=== PATIENT | female | born 2000 | race Caucasian/White ===

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

== ENCOUNTER 2021-01-03 20:35 | Emergency (ER) | payer BC ==
--- OUTSIDE RECORDS SUMMARY | 2021-01-03 20:38 | XMS REPORT | Continuity of Care Document ---
:2000 Author Organization [facility] t Address [address] [place] [address] Care Team Providers Name Role Phone Unavailable Unavailable Unavailable Problems Condition Condition Condition Status Onset Resolution Last Treating Co mments Source Name Details Category Date Date Treatment Clinician Date Contracept Contracept Problem Active 2018-07 M atagor ion using ion Using 0-29 da injectable Injectable 00:00: Me dical contracept Contracept 00 Gr oup kulwinder kulwinder medication Medication Contracept Contracept Problem Active 2018-07 M atag[facility] ion care ion Care 0-29 da management Management 00:00: Me dical 00 Group Allergies, Adverse Reactions, Alerts This patient has no known allergies or adverse reactions. Social History Smoking Status Start Date Stop Date Source Never Smoker [facility] Medications Ordered Filled Start Stop Current Ordering Indication Dosage Frequency Signature Comments Components Source Medication Medication Date Date Medication? Clinician (SIG) Name Name medroxyprog medroxyprog 2018-07 No medroxypro [place] esterone esterone 0-29 gesterone da 150 mg/mL 150 mg/mL 16:00: 150 mg/mL Medical intramuscul intramuscul 00 intramuscu Group ar ar lar suspensionI suspensionI suspension nject 1 mL nject 1 mL Inject 1 every 3 every 3 mL every 3 months by months by months by intramuscul intramuscul intramuscu ar route. ar route. lar route. medroxyprog medroxyprog No 1mL medroxypro [place] esterone esterone gesterone da 150 mg/mL 150 mg/mL 150 mg/mL Medical intramuscul intramuscul intramuscu Group ar ar lar suspension suspension suspension Inject 1 mL Inject 1 mL Inject 1 every 3 every 3 mL every 3 months by months by months by intramuscul intramuscul intramuscu ar route. ar route. lar route. ProAir HFA ProAir HFA No ProAir HFA [place] 90 90 90 da mcg/actuati mcg/actuati mcg/actuat Medical on aerosol on aerosol ion Mayco up inhaler inhaler aerosol inhaler Vital Signs Vital Name Observation Time Observation Value Comments Source BP Diastolic 2019-05-05 00:00:00 73 mm[Hg] [facility] Height 2019-05-05 00:00:00 61 [in_i] [facility] BMI (Body Mass 2019-05-05 00:00:00 23.1 kg/m2 [facility] Index[facility] Group BP Systolic 2019-05-05 00:00:00 107 mm[Hg] [facility] Body Weight 2019-05-05 00:00:00 122 [lb_av] [facility] Procedures This patient has no known procedures. Plan of Care Planned Activity Planned Date Details Comments Source Diagnostic Test 2019-05-05 urinalysis, [facility] P[facility] 00:00:00 dipstick [code = Group urinalysis, dipstick] Diagnostic Test 2019-05-05 test, [facility] Pending 00:00:00 urine [code = Group test, urine] Diagnostic Test 2019-05-05 CT + NG DNA, PCR, [facility] 00:00:00 urine [code = CT + Group NG DNA, PCR, urine] Encounters Start End Encounter Admission Attending Care Care Encounter Source Date/Time Date/Time Type Type Clinicians Facility Department ID 2019-05-05 2019-05-05 Alysia Quiles [facility] [place] - [id number] [place] 00:00:00 00:00:00 [facility] WHNP: [facility] [address], [place] [address] , Ph. [phone] Results Test Description Test Time Test Comments Results Result Comments Source Urinalysis macro (dipstick) panel - Urine 2019-05-05 15:07:0 0 Test Item Value Reference Range Interpretation Comme nts Leukocytes (test code = Leukocytes) Small Nitrite (test code = Nitrite) negative Urobilinogen (test code = Urobilinogen) .2 Protein (test code = Protein) Negative pH (test code = pH) 7.0 Blood (test code = Blood) Negative Specific Irving (test code = Specific Irving) 1.015 Ketone (test code = Ketone) Negative Bilirubin (test code = Bilirubin) Negative Glucose (test code = Glucose) Negative Appearance (test code = Appearance) Clear Color (test code = Color) Yellow [facility] [id number] 15:05:57 Test Item Value Reference Range Interpretation Comments Test (test code = negative Test) [facility]
[2021-01-03 20:56] LABS: Urine Blood Negative (Negative); Urine Glucose Negative (Negative); Urine Protein Trace (Negative); Urine Specific Gravity >=1.030 (1.005-1.030); Urine pH 5.5 (5.0-7.0)
--- NOTE | 2021-01-03 21:41 | ER ---
Nurse's Notes [facility] Name: Juju Nguyen Age: 20 yrs Sex: Female : 2000 Arrival Date: 01/03/2021 Time: 20:39 Bed 24 Private MD: Diagnosis: Diarrhea, unspecified Presentation: 01/03 20:55 Chief complaint: Patient states: Pt reports that she went swimming on Saturday she woke ea up Saturday with fever nausea vomiting and diarrhea. Coronavirus screen: At this time, the client does not indicate any symptoms associated with coronavirus-19. Ebola Screen: No symptoms or risks identified at this time. Initial Sepsis Screen: Does the patient meet any 2 criteria? No. Patient's initial sepsis screen is negative. Does the patient have a suspected source of infection? No. Patient's initial sepsis screen is negative. Risk Assessment: Do you want to hurt yourself or someone else? Patient reports no desire to harm self or others. Onset of symptoms was January 03, 2021. 20:55 Method Of Arrival: Ambulatory ea 20:55 Acuity: LYDIA 3 ea Triage Assessment: 21:49 Headache History: Denies prior headaches. General: Appears in no apparent distress. ld1 comfortable. Pain: Also complains of. Pain: Denies pain. 21:50 Pain: Pain currently is 0 out of 10 on a pain scale. Pain began 1 day ago. 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 - Social history:: Smoking status: Patient denies any tobacco usage or history of. Screenin:00 Abuse screen: Denies threats or abuse. Nutritional screening: No deficits noted. ea Tuberculosis screening: No symptoms or risk factors identified. Fall Risk None identified. Assessment: 20:58 General: Appears in no apparent distress. comfortable, Behavior is calm, cooperative, ld1 appropriate for age. Pain: Denies pain. Neuro: Level of Consciousness is awake, alert, obeys commands, Oriented to person, place, time, situation. Cardiovascular: Capillary refill < 3 seconds Patient's skin is warm and dry. Respiratory: Airway is patent Respiratory effort is even, unlabored, Respiratory pattern is regular, symmetrical. GI: Abdomen is flat, non-distended, Reports diarrhea, nausea, vomiting. : No signs and/or symptoms were reported regarding the genitourinary system. EENT: No signs and/or symptoms were reported regarding the EENT system. Derm: No signs and/or symptoms reported regarding the dermatologic system. Musculoskeletal: No signs and/or symptoms reported regarding the musculoskeletal system. 21:37 Reassessment: Patient appears in no apparent distress at this time. Patient is alert, ld1 oriented x 3, equal unlabored respirations, skin warm/dry/pink. Vital Signs: 20:55 BP 119 / 70; Pulse 60; Resp 18; Temp 98; Pulse Ox 97% ; Weight 58.97 kg; Height 5 ft. 1 ea in. (154.94 cm); 20:59 BP 119 / 75; Pulse 76; Resp 18; Temp 98.3(O); Pulse Ox 100% on R/A; Weight 58.97 kg; ld1 Height 5 ft. 1 in. (154.94 cm); Pain 0/10; 21:37 BP 124 / 77; Pulse 72; Resp 18; Pulse Ox 100% on R/A; ld1 20:59 Body Mass Index 24.56 (58.97 kg, 154.94 cm) ld1 ED Course: 20:39 Patient arrived in ED. es 20:45 Rubén Arnold MD is Attending Physician. ma2 20:58 Leilani Sims RN is Primary Nurse. ld1 20:59 No provider procedures requiring assistance completed. ld1 21:00 Triage completed. ea 21:00 Arm band placed on right wrist. ea 21:00 Patient has correct armband on for positive identification. Bed in low position. Call ea light in reach. 21:50 Patient did not have IV access during this emergency room visit. ld1 Administered Medications: 21:31 Drug: Ondansetron 4 mg Route: PO; ld1 21:36 Follow up: Response: No adverse reaction ld1 Outcome: 21:41 Discharge ordered by . ma2 21:50 Discharged to home ambulatory. ld1 21:50 Condition: stable 21:50 Discharge instructions given to patient, Instructed on discharge instructions, follow up and referral plans. medication usage, Demonstrated understanding of instructions, follow-up care, medications. 21:50 Patient left the ED. ld1 Signatures: Nikki Phillips Elena, RN RN Rubén Gibbons MD MD ma2 Leilani Sims RN RN ld1
--- NOTE | 2021-01-03 21:42 | EDPHYS ---
Physician Documentation [facility] Name: Juju Nguyen Age: 20 yrs Sex: Female : 2000 Arrival Date: 01/03/2021 Time: 20:39 Bed 24 Private MD: ED Physician Rubén Arnold HPI: 01/03 21:38 This 20 yrs old Female presents to ER via Ambulatory with complaints of ma2 Headache, Abdominal Pain, Fever, Vomiting, Body ache. 21:38 Onset: The symptoms/episode began/occurred gradually, 2 day(s) ago. Associated signs ma2 and symptoms: Pertinent positives: vomiting and diarrhea , Pertinent negatives: fever, nausea, paresthesias, Photophobia weakness. 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 - Social history:: Smoking status: Patient denies any tobacco usage or history of. ROS: 21:39 Constitutional: Negative for fever, chills, and weight loss. ma2 21:39 All other systems are negative. Exam: 21:39 Constitutional: This is a well developed, well nourished patient who is awake, alert, ma2 and in no acute distress. Head/Face: Normocephalic, atraumatic. Eyes: Pupils equal round and reactive to light, extra-ocular motions intact. Lids and lashes normal. Conjunctiva and sclera are non-icteric and not injected. Cornea within normal limits. Periorbital areas with no swelling, redness, or edema. ENT: Nares patent. No nasal discharge, no septal abnormalities noted. Tympanic membranes are normal and external auditory canals are clear. Oropharynx with no redness, swelling, or masses, exudates, or evidence of obstruction, uvula midline. Mucous membranes moist. Neck: Trachea midline, no thyromegaly or masses palpated, and no cervical lymphadenopathy. Supple, full range of motion without nuchal rigidity, or vertebral point tenderness. No Meningismus. Chest/axilla: Normal chest wall appearance and motion. Nontender with no deformity. No lesions are appreciated. Cardiovascular: Regular rate and rhythm with a normal S1 and S2. No gallops, murmurs, or rubs. Normal PMI, no JVD. No pulse deficits. Respiratory: Lungs have equal breath sounds bilaterally, clear to auscultation and percussion. No rales, rhonchi or wheezes noted. No increased work of breathing, no retractions or nasal flaring. Abdomen/GI: Soft, non-tender, with normal bowel sounds. No distension or tympany. No guarding or rebound. No evidence of tenderness throughout. Skin: Warm, dry with normal turgor. Normal color with no rashes, no lesions, and no evidence of cellulitis. MS/ Extremity: Pulses equal, no cyanosis. Neurovascular intact. Full, normal range of motion. Neuro: Awake and alert, GCS 15, oriented to person, place, time, and situation. Cranial nerves II-XII grossly intact. Motor strength 5/5 in all extremities. Sensory grossly intact. Cerebellar exam normal. Normal gait. Vital Signs: 20:55 BP 119 / 70; Pulse 60; Resp 18; Temp 98; Pulse Ox 97% ; Weight 58.97 kg; Height 5 ft. 1 ea in. (154.94 cm); 20:59 BP 119 / 75; Pulse 76; Resp 18; Temp 98.3(O); Pulse Ox 100% on R/A; Weight 58.97 kg; ld1 Height 5 ft. 1 in. (154.94 cm); Pain 0/10; 21:37 BP 124 / 77; Pulse 72; Resp 18; Pulse Ox 100% on R/A; ld1 20:59 Body Mass Index 24.56 (58.97 kg, 154.94 cm) ld1 MDM: 20:45 Patient medically screened. ma2 21:39 Differential diagnosis: gastroenteritis vs gastritis vs viral ilness vs uri. Data ma2 reviewed: vital signs, nurses notes. Counseling: I had a detailed discussion with the patient and/or guardian regarding: the historical points, exam findings, and any diagnostic results supporting the discharge/admit diagnosis, the presence of at least one elevated blood pressure reading (>120/80) during this emergency department visit, lab results, the need for outpatient follow up, the need for further work-up and treatment in the hospital. Response to treatment: the patient's symptoms have markedly improved after treatment, the patient's symptoms have resolved after treatment. 01/03 20:56 Order name: Urine Dipstick-Ancillary EDMS 01/03 20:58 Order name: Urine --Ancillary (enter results) tt3 01/03 20:59 Order name: Urine --Ancillary EDMS Administered Medications: 21:31 Drug: Ondansetron 4 mg Route: PO; ld1 21:36 Follow up: Response: No adverse reaction ld1 Disposition Summary: 01/03/21 21:41 Discharge Ordered Location: Home ma2 Condition: Stable ma2 Diagnosis - Diarrhea, unspecified ma2 Followup: ma2 - With: Private Physician - When: Tomorrow - Reason: If symptoms return, Continuance of care Discharge Instructions: - Discharge Summary Sheet ma2 - Food Choices to Help Relieve Diarrhea, Adult ma2 - Diarrhea, Adult ma2 Forms: - Medication Reconciliation Form ma2 - Thank You Letter ma2 - Antibiotic Education ma2 - Prescription Opioid Use ma2 Prescriptions: - Zofran 4 mg Oral Tablet - take 1 tablet by ORAL route every 12 hours As needed; 20 tablet; Refills: 0, ma2 Product Selection Permitted - Pepcid 20 mg Oral Tablet - take 1 tablet by ORAL route once daily for 10 days; 10 tablet; Refills: 0, ma2 Product Selection Permitted Signatures: Dispatcher [employer] EDMS Rubén Arnold MD MD ma2 Leilani Sims RN RN ld1
[2021-01-03 21:50] LABS: Urine Specific Gravity/Preg >1.030 (1.005-1.030)
[2021-01-03] MEDS ORDERED: ONDANSETRON 4 MG (ODT) TAB ONE (21:56)
[2021-01-03 22:14] VITALS: TEMP 98.3; O2SAT 100
[2021-01-03 22:15] VITALS: BP 124/77
== END 2021-01-03 21:50 | disposition home or self-care (01) ==
LOC: ER 20:35
DX: R19.7 Diarrhea, unspecified (principal)
CPT/HCPCS: 81003; 81025; 99283

== ENCOUNTER 2022-11-18 21:24 | Emergency (ER) | payer BC ==
--- OUTSIDE RECORDS SUMMARY | 2022-11-18 21:27 | XMS REPORT | Continuity of Care Document ---
:[address] [facility] t Address [address] [place] [address] Care Team Providers Name Role Phone G_Pappas Attending Clinician Unavailable V_Landis Attending Clinician Unavailable G_Pappas Admitting Clinician Unavailable V_Landis Admitting Clinician Unavailable Payers Payer Name Policy Type Policy Number Effective Date Expiration Date [place] [id number] 2018 00:00:00 [place] Problems Condition Condition Condition Status Onset Resolution [...] Start Date Stop Date Source Never Smoker [facility] Medications Ordered Filled Start [...] Source BP Diastolic 2019-05-05 00:00:00 73 [facility] Height 2019-05-05 00:00:00 61 [in_i] [facility] BMI (Body Mass 2019-05-05 00:00:00 23.1 kg/m2 [facility]) Group BP Systolic 2019-05-05 00:00:00 107 mm[Hg] [facility] Body Weight 2019-05-05 00:00:00 122 [lb_av] [facility] Procedures This patient has no known procedures. Plan of Care Planned Activity Planned Date Details Comments Source Diagnostic Test 2019-05-05 urinalysis, [facility] 00:00:00 dipstick [code = Group urinalysis, dipstick] Diagnostic Test 2019-05-05 test, [facility] 00:00:00 urine [code = Group test, urine] Diagnostic Test 2019-05-05 CT + NG DNA, PCR, [facility] 00:00:00 urine [code = CT + Group NG DNA, PCR, urine] Encounters Start End Encounter Admission Attending Care Care Encounter Source Date/Time Date/Time Type Type Clinicians Facility Department ID 2020-05-31 2020-05-31 Outpatient G_Pappas [facility] [id number] [place] 04:27:00 04:27:00 [id number] 2020-05-25 2020-05-25 Outpatient V_Landis [facility] [id number] [place] 02:47:00 02:47:00 [id number] 2019-08-18 2019-08-18 [facility] [id number] [place] 11:29:00 11:29:00 [id number] 2019-07-30 2019-07-30 [facility] [id number] [place] 10:35:00 10:35:00 [id number] [facility] 2019-05-05 2019-05-05 Alysia Quiles [facility] [place] - [id number] [place] 00:00:00 00:00:00 [facility] Lazaro da WHNP: [facility] [address], [facility] [place] [address] , Ph. [phone] Results Test Description Test Time Test Comments [...] Blood (test code = Blood) Negative Specific [place] (test code = Specific [place]) 1.015 Ketone (test code = Ketone) Negative Bilirubin (test code = Bilirubin) Negative Glucose (test code = Glucose) Negative Appearance (test code = Appearance) Clear Color (test code = Color) Yellow [facility], [id number] 15:05:57 Test Item Value Reference Range Interpretation Comments Test (test code = negative Test) [facility]
--- NOTE | 2022-11-18 22:10 | ER ---
Nurse's Notes [facility] Name: Juju Nguyen Age: 22 yrs Sex: Female : 2000 Arrival Date: 11/18/2022 Time: 21:24 Bed IW1 Private MD: Diagnosis: Dental caries, unspecified Presentation: 11/18 21:44 Chief complaint: Patient states: left jaw pain seen at urgent care on amoxicillin x 2 kl days has taken iburpofen 600mg at 1600 tyelenol 1000mg at 7 pm without relief. Coronavirus screen: Vaccine status: Patient reports being unvaccinated. Ebola Screen: Patient negative for fever greater than or equal to 101.5 degrees Fahrenheit, and additional compatible Ebola Virus Disease symptoms. Initial Sepsis Screen: Does the patient meet any 2 criteria? No. Patient's initial sepsis screen is negative. Does the patient have a suspected source of infection? No. Patient's initial sepsis screen is negative. Risk Assessment: Do you want to hurt yourself or someone else? Patient reports no desire to harm self or others. 21:44 Method Of Arrival: Ambulatory kl 21:44 Acuity: LYDIA 4 kl Triage Assessment: 21:49 General: Appears uncomfortable, Behavior is calm, cooperative. Pain: Complains of pain kl in left jaw Pain currently is 8 out of 10 on a pain scale. EENT: Reports pain in left jaw. Historical: - Allergies: 21:48 No Known Allergies; kl - Home Meds: 21:48 amoxicillin 500 mg Oral capsule every 8 hours [Active]; kl - PMHx: 21:48 brochiolitis; kl - PSHx: 21:48 None; kl - Immunization history:: Adult Immunizations not up to date. - Social history:: Smoking status: Reported history of juuling and/or vaping. Screenin:23 [facility] ED Fall Risk Assessment (Adult) History of falling in the last 3 months, kl including since admission No falls in past 3 months (0 pts) Confusion or Disorientation No (0 pts) Intoxicated or Sedated No (0 pts) Impaired Gait No (0 pts) Mobility Assist Device Used No (0 pt) Altered Elimination No (0 pt) Score/Fall Risk Level 0 - 2 = Low Risk Oriented to surroundings, Maintained a safe environment. Abuse screen: Denies threats or abuse. Nutritional screening: No deficits noted. Tuberculosis screening: No symptoms or risk factors identified. Assessment: 22:23 Reassessment: Patient appears in no apparent distress at this time. General: Behavior kl is calm, cooperative. Vital Signs: 21:44 BP 111 / 64; Pulse 84; Resp 18; Temp 98(IR); Pulse Ox 99% on R/A; Weight 58.97 kg (R); kl Height 5 ft. 1 in. ; Pain 8/10; 21:44 Body Mass Index 24.56 (58.97 kg, 154.94 cm) kl 21:44 Pain Scale: Adult ED Course: 21:26 Patient arrived in ED. mr 21:27 [facility] Dewitt [facility]C [facility] snw 21:27 Lennxo Solomon MD is Attending Physician. snw 21:48 Triage completed. kl 22:24 Patient has correct armband on for positive identification. kl 22:24 No provider procedures requiring assistance completed. Patient did not have IV access kl during this emergency room visit. Administered Medications: 22:23 Drug: HYDROcodone-acetaminophen PO 5 mg-325 mg 1 tabs Route: PO; kl 22:24 Follow up: Response: No adverse reaction Medication: 22:23 VIS not applicable for this client. Outcome: 22:09 Discharge ordered by . snw 22:24 Discharged to home ambulatory. kl 22:24 Condition: stable 22:24 Discharge instructions given to patient, Instructed on discharge instructions, follow up and referral plans. medication usage, Demonstrated understanding of instructions, follow-up care, medications, Prescriptions given X 2. 22:24 Patient left the ED. Signatures: Diana Quiroz, RN RN Shelli Field FNP-C FNP-Calin Tabatha Chaney mr
--- NOTE | 2022-11-18 22:10 | EDPHYS ---
Physician Documentation [facility] Name: Juju Nguyen Age: 22 yrs Sex: Female : 2000 Arrival Date: 11/18/2022 Time: 21:24 Bed IW1 Private MD: ED Physician Lennox Solomon HPI: 11/18 22:13 This 22 yrs old Female presents to ER via Ambulatory with complaints of Toothache. snw 22:13 The patient presents with pain. The problem is located in the upper left first molar snw (#14) and upper left second bicuspid (#13). Onset: The symptoms/episode began/occurred suddenly. Duration: The symptoms are continuous, and are steadily getting worse. Associated signs and symptoms: Pertinent positives: inability to eat, pain. Severity of symptoms: At their worst the symptoms were incapacitating, just prior to arrival. The patient has not experienced similar symptoms in the past. pt went to and was given abx Saturday. Taking motrin and tylenol at home. Mom states patient has been crying all evening with pain.. Historical: - Allergies: 21:48 No Known Allergies; kl - Home Meds: 21:48 amoxicillin 500 mg Oral capsule every 8 hours [Active]; kl - PMHx: 21:48 brochiolitis; kl - PSHx: 21:48 None; kl - Immunization history:: Adult Immunizations not up to date. - Social history:: Smoking status: Reported history of juuling and/or vaping. ROS: 22:13 Constitutional: Negative for fever, chills, and weight loss, Eyes: Negative for injury, snw pain, redness, and discharge, Neck: Negative for injury, pain, and swelling, Cardiovascular: Negative for chest pain, palpitations, and edema, Respiratory: Negative for shortness of breath, cough, wheezing, and pleuritic chest pain, Abdomen/GI: Negative for abdominal pain, nausea, vomiting, diarrhea, and constipation, Back: Negative for injury and pain, : Negative for injury, bleeding, discharge, and swelling, MS/Extremity: Negative for injury and deformity, Skin: Negative for injury, rash, and discoloration, Neuro: Negative for headache, weakness, numbness, tingling, and seizure, Psych: Negative for depression, anxiety, suicide ideation, homicidal ideation, and hallucinations. 22:13 ENT: Positive for Teeth pain Exam: 22:11 Constitutional: This is a well developed, well nourished patient who is awake, alert, snw and in no acute distress. Head/Face: Normocephalic, atraumatic. Eyes: Pupils equal round and reactive to light, extra-ocular motions intact. Lids and lashes normal. Conjunctiva and sclera are non-icteric and not injected. Cornea within normal limits. Periorbital areas with no swelling, redness, or edema. Neck: Trachea midline, no thyromegaly or masses palpated, and no cervical lymphadenopathy. Supple, full range of motion without nuchal rigidity, or vertebral point tenderness. No Meningismus. Chest/axilla: Normal chest wall appearance and motion. Nontender with no deformity. No lesions are appreciated. Cardiovascular: Regular rate and rhythm with a normal S1 and S2. No gallops, murmurs, or rubs. Normal PMI, no JVD. No pulse deficits. Respiratory: Lungs have equal breath sounds bilaterally, clear to auscultation and percussion. No rales, rhonchi or wheezes noted. No increased work of breathing, no retractions or nasal flaring. Abdomen/GI: Soft, non-tender, with normal bowel sounds. No distension or tympany. No guarding or rebound. No evidence of tenderness throughout. Back: No spinal tenderness. No costovertebral tenderness. Full range of motion. Skin: Warm, dry with normal turgor. Normal color with no rashes, no lesions, and no evidence of cellulitis. MS/ Extremity: Pulses equal, no cyanosis. Neurovascular intact. Full, normal range of motion. Neuro: Awake and alert, GCS 15, oriented to person, place, time, and situation. Cranial nerves II-XII grossly intact. Motor strength 5/5 in all extremities. Sensory grossly intact. Cerebellar exam normal. Normal gait. Psych: Awake, alert, with orientation to person, place and time. Behavior, mood, and affect are within normal limits. 22:11 ENT: TM's: tenderness to left ear, neg tug test, Mouth: is normal, Dental exam: pain, that is moderate, that is severe, specifically in the upper left second bicuspid (#13) and upper left first molar (#14). Vital Signs: 21:44 BP 111 / 64; Pulse 84; Resp 18; Temp 98(IR); Pulse Ox 99% on R/A; Weight 58.97 kg (R); kl Height 5 ft. 1 in. ; Pain 8/10; 21:44 Body Mass Index 24.56 (58.97 kg, 154.94 cm) kl 21:44 Pain Scale: Adult kl MDM: 21:53 Patient medically screened. snw 22:12 Differential diagnosis: dental caries, OM. Data reviewed: vital signs, nurses notes. snw Historians other than the Patient: Parent: Mom. Counseling: I had a detailed discussion with the patient and/or guardian regarding: the historical points, exam findings, and any diagnostic results supporting the discharge/admit diagnosis, the need for outpatient follow up, for definitive care, a dentist, to return to the emergency department if symptoms worsen or persist or if there are any questions or concerns that arise at home. Special discussion: Based on the history and exam findings, there is no indication for further emergent testing or inpatient evaluation. I discussed with the patient/guardian the need to see a dentist for further evaluation of the symptoms. Administered Medications: 22:23 Drug: HYDROcodone-acetaminophen PO 5 mg-325 mg 1 tabs Route: PO; kl 22:24 Follow up: Response: No adverse reaction kl Disposition: 11/19 05:20 Co-signature as Attending Physician, Lennox Solomon MD I agree with the assessment sp4 and plan of care. I reviewed the patient's care provided by the Advanced Practice Provider and agree with the diagnosis and treatment plan. Disposition Summary: 11/18/22 22:09 Discharge Ordered Location: Home snw Condition: Stable snw Diagnosis - Dental caries, unspecified snw Followup: snw - With: Private Physician - When: 1 - 2 days - Reason: Recheck today's complaints, Continuance of care, Re-evaluation by your physician Discharge Instructions: - Discharge Summary Sheet snw - Dental Caries, Adult snw - Dental Pain snw - Root Canal snw - Diet and Dental Disease snw - Dental Extraction, Care After snw Forms: - Medication Reconciliation Form snw - Thank You Letter snw - Antibiotic Education snw - Prescription Opioid Use snw Prescriptions: - Mobic 7.5 mg Oral Tablet - take 1 tablet by ORAL route once daily take with food; 20 tablet; Refills: 0, snw Product Selection Permitted - Tramadol 50 mg Oral Tablet - take 1 tablet by ORAL route every 8 hours as needed; 12 tablet; Refills: 0, snw Product Selection Permitted Signatures: Diana Quiroz, RN RN Shelli Field FNP-C FNP-Csnw Lennox Solomon MD MD sp4
[2022-11-18] MEDS ORDERED: HYDROCODONE/APAP 5/325 MG TAB ONE (22:28)
[2022-11-18 22:37] VITALS: BP 111/64; TEMP 98; O2SAT 99
== END 2022-11-18 22:24 | disposition home or self-care (01) ==
LOC: ER 21:24
DX: K02.9 Dental caries, unspecified (principal)
CPT/HCPCS: 99283